=== PATIENT | male | born 1945 | race Caucasian/White ===

== ENCOUNTER 2017-01-08 11:34 | Emergency (ER) | payer MEDICARE ==
[~2017-01-08] VITALS: Ht 175.3 cm; Wt 104.0 kg
[~2017-01-08 11:34] MED LIST: ENAL20TA PO; LATA0.002 EACH EYE; LOVA20TA PO; OMEP20TA PO
[2017-01-08 11:41] VITALS: BP 164/89; PULSE 70; RESP 18; TEMP 97.9; O2SAT 96
[2017-01-08] MEDS ORDERED: TETANUS/DIPHTHERIA TOXOID ADULT 0.5 ML VIAL IM ONE (12:00)
[2017-01-08] MEDS ORDERED: MELO-1 PO (12:14)
--- NOTE | 2017-01-08 12:14 | PD ---
HPI Chief Complaint: Injury Time Seen by Provider: 11:40 Travel History International Travel<30 days: No Contact w/Intl Traveler<30days: No Traveled to known affect area: No History of Present Illness HPI 71-year-old male presents emergency department for evaluation of right shoulder pain after lifting a 25 pound bag of birdseed with one arm. He reports the pain was immediate and in the anterior and posterior aspect of the shoulder. He denies numbness/tingling this weakness of the extremity. She reports history of rotator cuff injury and right shoulder. He reports this pain is similar. He reports pain with overhead extension and full abduction. Pain is constant, nonradiating worse with movement relieved with rest. Severity 5/10. PFSH Past Medical History Blood Disorders: No Heart Rhythm Problems: No Cancer: No Cardiovascular Problems: Yes (htn on meds) High Cholesterol: Yes Chest Pain: Yes Congestive Heart Failure: No Diabetes: No Diminished Hearing: No Endocrine: Yes Gastrointestinal Disorders: Yes (PASSING BLOOD) GERD: Yes Glaucoma: No Genitourinary: No Hepatitis: No Hiatal Hernia: No Hypertension: Yes Immune Disorder: No Implanted Vascular Access Dvce: No Medical other: Yes (GERD, GI BLEED, ARTHRITIS, BROWN'S SEQUAD QUADROPELGIC) Musculoskeletal: Yes ("BROKEN NECK") Neurologic: No Psychiatric: No Reproductive: No Respiratory: Yes Immunizations Current: Yes Thyroid Disease: No Tetanus Vaccination: > 5 Years Influenza Vaccination: No Past Surgical History Abdominal Surgery: No Cardiac Surgery: No Ear Surgery: No Endocrine Surgery: No Eye Surgery: Yes (LEFT EYE SCLERAL BUCKLE, VITRECTOMY, LENS INSERTED, right eye cataract) Genitourinary Surgery: No Gynecologic Surgery: No Neurologic Surgery: Yes (BROKEN NECK -- C5/6/7 FUSION WITH WIRE) Oral Surgery: No Pacemaker: No Thoracic Surgery: No Other Surgery: Yes (VASECTOMY, right knee) Social History Alcohol Use: No Tobacco Use: No Substance Use: No Allergies-Medications (Allergen,Severity, Reaction): Coded Allergies: No Known Allergies (Verified , 01/08/17) Reported Meds & Prescriptions Reported Meds & Active Scripts Active Meloxicam 15 Mg Tab 15 Mg PO DAILY Reported Omeprazole 20 Mg Tab 20 Mg PO DAILY Lovastatin 20 Mg Tab 20 Mg PO EVERY OTHER DAY Latanoprost Opth Drops (Latanoprost) 0.005% Drops 1 Drop EACH EYE HS Refrigerate until opened. Enalapril (Enalapril Maleate) 20 Mg Tab 20 Mg PO BID Review of Systems Except as stated in HPI: all other systems reviewed are Neg General / Constitutional: No: Fever Eyes: No: Visual changes HENT: No: Headaches Cardiovascular: No: Chest Pain or Discomfort Respiratory: No: Shortness of Breath Gastrointestinal: No: Abdominal Pain Genitourinary: No: Dysuria Physical Exam Narrative GENERAL: Well-nourished, well-developed patient. SKIN: Focused skin assessment warm/dry. HEAD: Normocephalic. EYES: No scleral icterus. No injection or drainage. NECK: Supple, trachea midline. No JVD or lymphadenopathy. CARDIOVASCULAR: Regular rate and rhythm without murmurs, gallops, or rubs. RESPIRATORY: Breath sounds equal bilaterally. No accessory muscle use. GASTROINTESTINAL: Abdomen soft, non-tender, nondistended. MUSCULOSKELETAL: No cyanosis, or edema. Right upper extremity: TTP of the soft tissue in the anterior posterior aspect of the shoulder extending into the proximal portion of the biceps. No shoulder deformity or step-off. Positive Neer's test. 2+ distal pulses. Normal sensation. Equal hand grasp. BACK: Nontender without obvious deformity. No CVA tenderness. Data Data Last Documented VS Vital Signs Date Time Temp Pulse Resp B/P (MAP) Pulse Ox O2 Delivery O2 Flow Rate FiO2 01/08/17 11:58 16 96 Room Air 01/08/17 11:41 97.9 70 164/89 (114) Orders Orders Tetanus/Diphtheria Tox Adult (Tetanus/Di (01/08/17 12:00) Ketorolac Inj (Toradol Inj) (01/08/17 12:15) ^ Sling (01/08/17 12:25) MDM Medical Decision Making Medical Screen Exam Complete: Yes Emergency Medical Condition: Yes Differential Diagnosis Rotator cuff injury, biceps injury, shoulder strain Narrative Course 71-year-old male presents emergency department for evaluation of right shoulder pain after lifting a 25 pound bag of birdseed with one arm. He reports the pain was immediate and the anterior and posterior aspect of the shoulder. He denies numbness/tingling this weakness of the extremity. On exam the shoulders and good alignment. Extremities neurovascularly intact. Has a positive Neer's test. Patient has a known history of a rotator cuff tear. Patient will be instructed to wear sling given a prescription for NSAIDs and instructed to follow-up with orthopedic doctor. Diagnosis Primary Impression: Injury of right rotator cuff Qualified Codes: S46.001A - Unspecified injury of muscle(s) and tendon(s) of the rotator cuff of right shoulder, initial encounter Referrals: Orthopedist Additional Instructions: Take the medication as prescribed. Wear the sling if possible. Avoid any heavy lifting with the right upper extremity. Follow-up with orthopedic doctor this week for recheck Scripts Meloxicam (Meloxicam) 15 Mg Tab 15 MG PO DAILY for Arthritis Pain, #20 TAB 0 Refills Prov: Negar Alexis 01/08/17 Disposition: 01 DISCHARGE HOME Condition: Stable Negar Alexis Jan 08, 2017 12:14
[2017-01-08] MEDS ORDERED: KETOROLAC TROMETHAMINE 60 MG/2 ML (IM) VIAL IM ONE (12:15)
== END 2017-01-08 12:45 | disposition home or self-care (01) ==
LOC: PHEFT 11:34
DX: S46.001A Unspecified injury of muscle(s) and tendon(s) of the rotator cuff of right shoulder, initial encounter (principal); I10 Essential (primary) hypertension; E78.00 Pure hypercholesterolemia, unspecified; Z86.79 Personal history of other diseases of the circulatory system; Z87.19 Personal history of other diseases of the digestive system; Z87.39 Personal history of other diseases of the musculoskeletal system and connective tissue; Z87.09 Personal history of other diseases of the respiratory system; X50.0XXA Overexertion from strenuous movement or load, initial encounter
CPT/HCPCS: 96372; 99284; J1885

== ENCOUNTER 2017-05-20 14:09 | Observation (INO) | payer MEDICARE ==
[~2017-05-20] VITALS: Ht 175.3 cm; Wt 102.8 kg
[~2017-05-20 14:09] MED LIST changes: +MELO15TA20 PO; -OMEP20TA PO; +OMEP20TA93 PO
[2017-05-20 14:46] VITALS: BP 158/89; PULSE 80; RESP 20; TEMP 98.6; O2SAT 93
[2017-05-20] MEDS ORDERED: LATA0.002 RIGHT EYE (15:39)
[2017-05-20] MEDS ORDERED: TIMO0.5S30 RIGHT EYE (15:39)
[2017-05-20] MEDS ORDERED: SODIUM CHLOR 0.9% 1000 ML INJ 1,000 ML IV SCH (16:04)
--- NOTE | 2017-05-20 16:08 | PD ---
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 Symptoms started yesterday and seemed to worsen today. He had a fever of 100F before coming to the emergency department and was given a dose of Mucinex by his . Cough is productive of yellowish sputum. No hemoptysis. No dyspnea. No chest pain. No abdominal pain or vomiting. He has had some loose stools. He had a retinal detachment in his left eye and uses eyedrops at night for intraocular pressure. He is having some blurred vision in his left eye. Headache is frontal, described as pressure, 6 out of 10. No paresthesias or motor deficits. He was started on Cipro today by his primary care physician. PFSH Past Medical History Blood Disorders: No Heart Rhythm Problems: No Cancer: No Cardiovascular Problems: Yes (htn on meds) High Cholesterol: Yes Chest Pain: Yes Congestive Heart Failure: No Diabetes: No Diminished Hearing: No Endocrine: Yes Gastrointestinal Disorders: Yes (PASSING BLOOD) GERD: Yes Glaucoma: No Genitourinary: No Hepatitis: No Hiatal Hernia: No Hypertension: Yes Immune Disorder: No Implanted Vascular Access Dvce: No Medical other: Yes (GERD, GI BLEED, ARTHRITIS, BROWN'S SEQUAD QUADROPELGIC) Musculoskeletal: Yes ("BROKEN NECK") Neurologic: No Psychiatric: No Reproductive: No Respiratory: Yes Immunizations Current: Yes Thyroid Disease: No Past Surgical History Abdominal Surgery: No Cardiac Surgery: No Ear Surgery: No Endocrine Surgery: No Eye Surgery: Yes (LEFT EYE SCLERAL BUCKLE, VITRECTOMY, LENS INSERTED, right eye cataract) Genitourinary Surgery: No Gynecologic Surgery: No Neurologic Surgery: Yes (BROKEN NECK -- C5/6/7 FUSION WITH WIRE) Oral Surgery: No Pacemaker: No Thoracic Surgery: No Other Surgery: Yes (VASECTOMY, right knee) Social History Alcohol Use: No Tobacco Use: No Substance Use: No Allergies-Medications (Allergen,Severity, Reaction): Coded Allergies: No Known Allergies (Verified Allergy, Unknown, 05/20/17) Reported Meds & Prescriptions Reported Meds & Active Scripts Active Reported Timolol Opth Drops 0.5 % Soln 1 Drop RIGHT EYE BID Latanoprost Opth Drops (Latanoprost) 0.005% Drops 1 Drop RIGHT EYE HS Refrigerate until opened. Omeprazole 20 Mg Tab 20 Mg PO DAILY Lovastatin 20 Mg Tab 20 Mg PO EVERY OTHER DAY Latanoprost Opth Drops (Latanoprost) 0.005% Drops 1 Drop EACH EYE HS Refrigerate until opened. Enalapril (Enalapril Maleate) 20 Mg Tab 20 Mg PO BID Review of Systems Except as stated in HPI: all other systems reviewed are Neg Physical Exam Narrative GENERAL: Well-developed, well-nourished, comfortable, no apparent distress. SKIN: Focused skin assessment warm/dry. No rash. HEAD: Atraumatic. Normocephalic. EYES: Pupils equal and round. No scleral icterus. No injection or drainage. Intraocular pressure in the right eye is 19 mmHg, 23 mmHg in the left eye. These pressures are normal for the patient according to him and his . ENT: No nasal bleeding or discharge. Mucous membranes pink and moist. Normal pharynx. NECK: Trachea midline. No JVD. No nuchal rigidity. CARDIOVASCULAR: Regular rate and rhythm. RESPIRATORY: No accessory muscle use. Clear to auscultation. Breath sounds equal bilaterally. GASTROINTESTINAL: Abdomen soft, non-tender, nondistended. MUSCULOSKELETAL: No obvious deformities. No clubbing. No cyanosis. No edema. NEUROLOGICAL: Awake and alert. No obvious cranial nerve deficits. Motor grossly within normal limits. Normal speech. PSYCHIATRIC: Appropriate mood and affect; insight and judgment normal. Data Data Last Documented VS Vital Signs Date Time Temp Pulse Resp B/P (MAP) Pulse Ox O2 Delivery O2 Flow Rate FiO2 05/20/17 16:30 70 20 94 Room Air 05/20/17 14:46 98.6 158/89 (112) Orders Orders Complete Blood Count With Diff (05/20/17 16:04) Comprehensive Metabolic Panel (05/20/17 16:04) Prothrombin Time / Inr (Pt) (05/20/17 16:04) Act Partial Throm Time (Ptt) (05/20/17 16:04) Urinalysis - C+S If Indicated (05/20/17 16:04) Iv Access Insert/Monitor (05/20/17 16:04) Ecg Monitoring (05/20/17 16:04) Oximetry (05/20/17 16:04) Sodium Chlor 0.9% 1000 Ml Inj (Ns 1000 M (05/20/17 16:04) Sodium Chloride 0.9% Flush (Ns Flush) (05/20/17 16:15) Chest, Single Ap (05/20/17 ) Influenzae A/B Antigen (05/20/17 16:04) Group A Rapid Strep Screen (05/20/17 16:04) Ct Brain W/O Iv Contrast(Rout) (05/20/17 ) Proparacaine 0.5% Opth Soln (Alcaine 0.5 (05/20/17 16:45) Strep Culture (Group A) (05/20/17 16:20) Oseltamivir (Tamiflu) (05/20/17 17:00) Labs Laboratory Tests Test 05/20/17 16:20 White Blood Count 7.1 TH/MM3 Red Blood Count 4.92 MIL/MM3 Hemoglobin 14.9 GM/DL Hematocrit 44.8 % Mean Corpuscular Volume 91.1 FL Mean Corpuscular Hemoglobin 30.4 PG Mean Corpuscular Hemoglobin Concent 33.3 % Red Cell Distribution Width 13.9 % Platelet Count 150 TH/MM3 Mean Platelet Volume 8.9 FL Neutrophils (%) (Auto) 76.7 % Lymphocytes (%) (Auto) 10.0 % Monocytes (%) (Auto) 11.4 % Eosinophils (%) (Auto) 0.7 % Basophils (%) (Auto) 1.2 % Neutrophils # (Auto) 5.5 TH/MM3 Lymphocytes # (Auto) 0.7 TH/MM3 Monocytes # (Auto) 0.8 TH/MM3 Eosinophils # (Auto) 0.0 TH/MM3 Basophils # (Auto) 0.1 TH/MM3 CBC Comment DIFF FINAL Differential Comment Prothrombin Time 10.9 SEC Prothromb Time International Ratio 1.1 RATIO Activated Partial Thromboplast Time 30.2 SEC Urine Collection Type VOIDED Urine Color YELLOW Urine Turbidity CLEAR Urine pH 6.0 Urine Specific [place] 1.034 Urine Protein 30 mg/dL Urine Glucose (UA) NEG mg/dL Urine Ketones NEG mg/dL Urine Occult Blood NEG Urine Nitrite NEG Urine Bilirubin NEG Urine Leukocyte Esterase NEG Urine WBC 0-2 /hpf Urine Squamous Epithelial Cells 0-2 /hpf Urine Mucus FEW /lpf Microscopic Urinalysis Comment CULT NOT INDICATED Blood Urea Nitrogen 12 MG/DL Creatinine 0.90 MG/DL Random Glucose 104 MG/DL Total Protein 7.4 GM/DL Albumin 3.6 GM/DL Calcium Level 8.4 MG/DL Alkaline Phosphatase 71 U/L Aspartate Amino Transf (AST/SGOT) 23 U/L Alanine Aminotransferase (ALT/SGPT) 27 U/L Total Bilirubin 0.6 MG/DL Sodium Level 133 MEQ/L Potassium Level 3.9 MEQ/L Chloride Level 100 MEQ/L Carbon Dioxide Level 26.2 MEQ/L Anion Gap 7 MEQ/L Estimat Glomerular Filtration Rate 83 ML/MIN [facility] Medical Decision Making Medical Screen Exam Complete: Yes Emergency Medical Condition: Yes Differential Diagnosis Influenza, URI, pneumonia, sinusitis, intracranial abnormality, dehydration, metabolic abnormality, UTI Narrative Course Initial vital signs show heart rate 80, blood pressure 158/89, pulse ox 93% on room air, oral temp of 98.6F. CBC: WBC 7.1, hemoglobin 14.9, hematocrit 44.8, platelets 150, neutrophils 76.7% , monocytes 11.4%. CMP is essentially unremarkable. UA shows 30 protein, few mucus, not suggestive of UTI. Chest x-ray shows no acute disease. CT head shows no acute intracranial process. Influenza A+. The patient and the patient's were made aware of all findings. He is not in any respiratory distress. He has no history of pulmonary disease. His O2 saturation is between 91 and 93% on room air. Patient and the patient's prefer for him to stay in the hospital if at all possible. Given his age, influenza A positive, and hypoxia, he will be admitted for overnight observation. He was started on Tamiflu. Case discussed with [facility] hospitalist Dr. Lugo who will admit the patient to his service. Diagnosis Primary Impression: Influenza A Additional Impression: Hypoxia Admitting Information Admitting Physician Requests: Observation Remi Somers MD May 20, 2017 16:08
[2017-05-20] MEDS ORDERED: SODIUM CHLORIDE 0.9% FLUSH 10 ML FLUSH IV FLUSH PRN (16:15)
[2017-05-20 16:30] VITALS: PULSE 70; RESP 20; O2SAT 94
--- NOTE | 2017-05-20 16:32 | RADRPT ---
EXAM DATE/TIME: 05/20/2017 16:20 [facility] COMPARISON: CHEST PA & LAT, April 21, 2015, 11:36. INDICATIONS : Fever. MEDICAL HISTORY : None. SURGICAL HISTORY : None. ENCOUNTER: Initial ACUITY: 2 days PAIN SCORE: 0/10 LOCATION: Bilateral chest FINDINGS: A single view of the chest demonstrates the lungs to be symmetrically aerated without evidence of mas s, infiltrate or effusion. The cardiomediastinal contours are unremarkable. Osseous structures are intact. CONCLUSION: 1. No acute cardiopulmonary disease. Kenji Dey MD on May 20, 2017 at 16:29 Board Certified Radiologist. This report was verified electronically.
[2017-05-20 16:37] LABS: AUTOMATED NEUTROPHIL # 5.5 TH/MM3 (1.8-7.7); BASOPHIL # 0.1 TH/MM3 (0-0.2); BASOPHIL % 1.2 % (0.0-2.0); EOSINOPHIL % 0.7 % (0.0-4.0); HEMATOCRIT 44.8 % (39.0-51.0); HEMOGLOBIN 14.9 GM/DL (13.0-17.0); LYMPHOCYTE # 0.7 TH/MM3 (1.0-4.8); MEAN CELL VOLUME 91.1 FL (80.0-100.0); MEAN CORPUSCULAR HEMOGLOBIN 30.4 PG (27.0-34.0); MEAN CORPUSCULAR HGB CONC 33.3 % (32.0-36.0); MEAN PLATELET VOLUME 8.9 FL (7.0-11.0); MONO % 11.4 % (0.0-8.0); MONOCYTE # 0.8 TH/MM3 (0-0.9); NEUT % 76.7 % (16.0-70.0); PLATELET COUNT 150 TH/MM3 (150-450); RED BLOOD COUNT 4.92 MIL/MM3 (4.50-5.90); RED CELL DISTRIBUTION WIDTH 13.9 % (11.6-17.2); WHITE BLOOD COUNT 7.1 TH/MM3 (4.0-11.0)
[2017-05-20 16:39] LABS: BILIRUBIN, URINE NEG (NEG); BLOOD, URINE NEG (NEG); GLUCOSE,URINE NEG (NEG); KETONE, URINE NEG (NEG); NITRITE,URINE NEG (NEG); URINE LEUKOCYTE ESTERASE NEG (NEG)
--- NOTE | 2017-05-20 16:42 | RADRPT ---
EXAM DATE/TIME: 05/20/2017 16:24 [facility] COMPARISON: No previous studies available for comparison. INDICATIONS : Cephalgia. RADIATION DOSE: 60.15 CTDIvol (mGy) MEDICAL HISTORY : Gastroesophageal reflux disease. Hypertension. Cervical fractures. SURGICAL HISTORY : Fusion, cervical. ENCOUNTER: Initial ACUITY: 2 days PAIN SCALE: 7/10 LOCATION: cranial TECHNIQUE: Multiple contiguous axial images were obtained of the head. Using automated exposure control and adj ustment of the mA and/or kV according to patient size, radiation dose was kept as low as reasonably a chievable to obtain optimal diagnostic quality images. DICOM format image data is available electro nically for review and comparison. FINDINGS: CEREBRUM: The ventricles are normal for age. No evidence of midline shift, mass lesion, hemorrhage or acute in farction. No extra-axial fluid collections are seen. POSTERIOR FOSSA: The cerebellum and brainstem are intact. The 4th ventricle is midline. The cerebellopontine angle i s unremarkable. EXTRACRANIAL: The visualized portion of the orbits is intact. SKULL: The calvaria is intact. No evidence of skull fracture. CONCLUSION: Negative for acute process. Alen yBrd MD FACR on May 20, 2017 at 16:39 Board Certified Radiologist. This report was verified electronically.
[2017-05-20] MEDS ORDERED: PROPARACAINE HCL 0.5% OPHT SOLN 15 ML BTL LEFT EYE ONE (16:45)
[2017-05-20 16:46] LABS: CHLORIDE 100 MEQ/L (98-107); SODIUM (NA) 133 MEQ/L (136-145)
[2017-05-20 16:49] LABS: ALBUMIN 3.6 GM/DL (3.4-5.0); BICARBONATE 26.2 MEQ/L (21.0-32.0); BLOOD UREA NITROGEN 12 MG/DL (7-18); CALCIUM 8.4 MG/DL (8.5-10.1); GLUCOSE,RANDOM 104 MG/DL (74-106)
[2017-05-20 16:50] LABS: INTERNATIONAL NORMALIZED RATIO 1.1 RATIO; PROTHROMBIN TIME - PATIENT 10.9 SEC (9.8-11.6)
[2017-05-20 16:52] LABS: ALT (GPT) 27 U/L (12-78); AST (GOT) 23 U/L (15-37); GLOMERULAR FILTRATION RATE 83 ML/MIN (>89)
[2017-05-20 16:54] LABS: TOTAL BILIRUBIN ADULT 0.6 MG/DL (0.2-1.0); TOTAL PROTEIN 7.4 GM/DL (6.4-8.2)
[2017-05-20 16:55] LABS: ALKALINE PHOSPHATASE 71 U/L (45-117)
[2017-05-20] MEDS ORDERED: OSELTAMIVIR PHOSPHATE 75 MG CAP PO ONE (17:00)
[2017-05-20 17:01] LABS: MUCUS URINE FEW /lpf (OCC); URINE COLOR YELLOW (YELLW/STRAW)
[2017-05-20 17:02] LABS: SQUAMOUS EPITHELIAL CELL URINE 0-2 /hpf (0-5); WBC, URINE 0-2 /hpf (0-5)
[2017-05-20 17:52] VITALS: BP 168/96; PULSE 70; RESP 20; TEMP 98.9; O2SAT 94
[2017-05-20 18:44] VITALS: BP 165/106; PULSE 73; RESP 16; TEMP 98.8; O2SAT 95
--- NOTE | 2017-05-20 19:15 | MH ---
cc: AARON LEON DATE OF ADMISSION 05/20/2017 ADMISSION DIAGNOSIS 1. Influenza type A 2. Minimal hypoxemia without symptoms. 3. Hypertension 4. 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 Glaucoma. 7. Osteoarthritis. PERTINENT HISTORY This is a pleasant 71-year-old white male who came to the emergency room today with a one-day history of generalized malaise, cough, slight sore throat. He had no vomiting. No nausea. He had just some slight loose bowel movements earlier today. He has had low grade fever. His cough is productive of a little bit of yellowish mucus at times but primarily dry. He has no dysuria, frequency or hematuria. In the ED, he was tested for influenza type A which was positive. The ER physician felt like he should stay overnight because his O2 sat at one time was down to 91%. For that reason, he was admitted to observation overnight. He has been given Tamiflu. He will be admitted for observation and possibly discharge tomorrow. He looks fairly comfortable as I am examining him after his admission by the ED. He does not have any wheezing or shortness of breath. He denies any prior history of documented COPD or asthma, however, he did smoke about one and a half packs a day for around 42 years. PAST MEDICAL HISTORY 1. Hypertension, 2. Hyperlipidemia. 3. History of surgery for a neck fracture with cervical fusion in 1978 and what was diagnosed as a Brown ___ injury which left him with some spasticity and slight weakness of his left arm and left leg and some numbness of the right side of his body from the foot up to the right armpit for years. 4. Osteoarthritis especially in the right knee. He denies any heart attack, angina, CHF, diabetes, liver or kidney disease. No history of stroke or seizure, no cancer. He does have increased intraocular pressure in the left eye and decreased vision in that eye where he had had a retinal detachment in that eye. PAST SURGICAL HISTORY 1. Cataract extraction and lens implant of the right eye 2. Surgery for retinal detachment in the left eye. 3. Tonsillectomy 4. Cervical fusion in 1978 after fracture of his neck 5. Cardiac cath in the past that showed just some minimal coronary artery disease of the LAD with a 10-20% mid LAD lesion. 6. Prior EGD on 07/01/2008 that showed just a Vilma Thompson tear and some esophagitis. ALLERGIES None. MEDICATIONS 1. Lovastatin 20 mg one every other day. 2. Enalapril 20 mg twice a day. 3. Omeprazole 20 mg a day. 4. Timolol eye drops 0.5% 1 drop in the left daily 5. Latanoprost 0.005% 1 drop at bed time in the left eye FAMILY HISTORY A brother with Parkinson disease, Mother in her 80s of lymphoma. Father at around 60s of a heart attack. SOCIAL HISTORY He has smoked one and a half pack a day from around age 16 to age 58. He is . Does not use alcohol. REVIEW OF SYSTEMS GENERAL: Has had the weakness and this low grade fever. HEENT: With a slight sore throat, slight sinus pressure, has chronic decreased vision in the left eye. CARDIOVASCULAR: No chest pain, orthopnea, PND. PULMONARY: He has had a primarily dry cough as mentioned, no wheezing or shortness of breath. GI: No nausea or vomiting. He did have loose bowel movement earlier today. No abdominal pain. : No dysuria, frequency, urgency, hematuria. EXTREMITIES: Without swelling. NEUROLOGIC: As mentioned with spasticity and slight weakness in the left arm and left leg and numbness on the right side of his body from the armpit down to the right foot, no confusion. SKIN: Without rash. MUSCULOSKELETAL: He has arthritis in the right knee. No other pain. PHYSICAL EXAMINATION GENERAL: A pleasant white male in no distress. VITAL SIGNS: BP has been from 158-89/168-96, temperature 98.9, pulse 70, respirations 20. Pulse ox 94%. HEENT: TMs clear. Pupils equal. Nose negative. Mouth without inflammation. He has dentures. NECK: Without bruit. No JVD. HEART: Regular rate and rhythm. No murmur. LUNGS: No significant crackles or wheeze just occasional rhonchi that improve with cough. ABDOMEN: Soft, nontender, no mass. EXTREMITIES: Pulses good in both feet 2+. SKIN: Without rash. NEUROLOGIC: He has just some slight weakness of the left arm and spasticity of the left hand and slight weakness left leg, slight decreased sensation of the right lower extremity to touch. He is oriented and alert. LABORATORY DATA Sodium was 133, potassium 3.9, BUN 12, creatinine 0.9, AST, ALT alkaline phosphatase, protein, albumin were normal. Glucose 104. White count was 7.1, hemoglobin 14.9. Urinalysis was negative. Coag negative. IMAGING STUDIES Chest x-ray showed no acute process. CT brain scan was done which showed negative for acute process. ASSESSMENT/PLAN He will just be admitted to observation. We will just give him some DuoNeb treatments to help him clear his mucus, give him some cough medicine with codeine. We will put him on Tamiflu. We will maintain him on his regular medications. He will be on a regular diet with a heart healthy diet. We will give him some REBECCA hose and SCDs for DVT prophylaxis. MD KAHLIL Wilson/ /6:32 PM /6:46 PM
[2017-05-20 19:40] VITALS: TEMP 98.8
[2017-05-20] MEDS ORDERED: TIMOLOL MALEATE 0.5% OPHT SOLN 5 ML BTL LEFT EYE ONE (20:00)
[2017-05-20] MEDS ORDERED: LATANOPROST 0.005% OPHT SOLN 2.5 ML BTL EACH EYE SCH (21:00)
[2017-05-20] MEDS: OSELTAMIVIR PHOSPHATE 75 MG CAP PO SCH (21:51)
[2017-05-20] MEDS: ENALAPRIL MALEATE 10 MG TAB PO SCH (21:51)
[2017-05-20] MEDS: guaiFENesin/CODEINE SYRUP 200 MG/20 MG/10 ML CUP PO PRN (21:51)
[2017-05-20] MEDS: ACETAMINOPHEN 650 MG/20.3 ML UDC PO PRN (21:51)
[2017-05-20] MEDS: RESP: ALBUTEROL 2.5 MG/IPRATROPIUM 0.5 MG NEB (SCH) NEB (22:09)
[2017-05-20 22:21] VITALS: BP 161/81; PULSE 81; RESP 20; TEMP 99.6; O2SAT 94
[2017-05-21] VITALS: BP 142/70; PULSE 67; RESP 18; TEMP 98.9; O2SAT 95
[2017-05-21 04:00] VITALS: O2SAT 95
[2017-05-21] MEDS: RESP: ALBUTEROL 2.5 MG/IPRATROPIUM 0.5 MG NEB (SCH) NEB (04:00)
[2017-05-21] MEDS: ACETAMINOPHEN 650 MG/20.3 ML UDC PO PRN (06:50)
[2017-05-21] MEDS: guaiFENesin/CODEINE SYRUP 200 MG/20 MG/10 ML CUP PO PRN (06:50)
--- NOTE | 2017-05-21 07:36 | HHI.PR ---
Subjective Remarks I feel better.I am coughing less.No shortness of breath or wheezing. No pain. Objective Vitals Vital Signs Date Time Temp Pulse Resp B/P (MAP) Pulse Ox O2 Delivery O2 Flow Rate FiO2 05/21/17 04:00 95 05/21/17 00:00 98.9 67 18 142/70 (94) 95 05/20/17 22:21 99.6 81 20 161/81 (107) 94 05/20/17 20:34 05/20/17 19:40 98.8 05/20/17 18:44 98.8 73 16 165/106 (125) 95 Room Air 05/20/17 17:52 98.9 70 20 168/96 (120) 94 Room Air 05/20/17 16:30 70 20 94 Room Air 05/20/17 14:46 98.6 80 20 158/89 (112) 93 Result Diagram: 05/20/17 1620 05/20/17 1620 Other Results Laboratory Tests Test 05/20/17 16:20 White Blood Count 7.1 TH/MM3 Red Blood Count 4.92 MIL/MM3 Hemoglobin 14.9 GM/DL Hematocrit 44.8 % Mean Corpuscular Volume 91.1 FL Mean Corpuscular Hemoglobin 30.4 PG Mean Corpuscular Hemoglobin Concent 33.3 % Red Cell Distribution Width 13.9 % Platelet Count 150 TH/MM3 Mean Platelet Volume 8.9 FL Neutrophils (%) (Auto) 76.7 % Lymphocytes (%) (Auto) 10.0 % Monocytes (%) (Auto) 11.4 % Eosinophils (%) (Auto) 0.7 % Basophils (%) (Auto) 1.2 % Neutrophils # (Auto) 5.5 TH/MM3 Lymphocytes # (Auto) 0.7 TH/MM3 Monocytes # (Auto) 0.8 TH/MM3 Eosinophils # (Auto) 0.0 TH/MM3 Basophils # (Auto) 0.1 TH/MM3 CBC Comment DIFF FINAL Differential Comment Prothrombin Time 10.9 SEC Prothromb Time International Ratio 1.1 RATIO Activated Partial Thromboplast Time 30.2 SEC Urine Collection Type VOIDED Urine Color YELLOW Urine Turbidity CLEAR Urine pH 6.0 Urine Specific [place] 1.034 Urine Protein 30 mg/dL Urine Glucose (UA) NEG mg/dL Urine Ketones NEG mg/dL Urine Occult Blood NEG Urine Nitrite NEG Urine Bilirubin NEG Urine Leukocyte Esterase NEG Urine WBC 0-2 /hpf Urine Squamous Epithelial Cells 0-2 /hpf Urine Mucus FEW /lpf Microscopic Urinalysis Comment CULT NOT INDICATED Blood Urea Nitrogen 12 MG/DL Creatinine 0.90 MG/DL Random Glucose 104 MG/DL Total Protein 7.4 GM/DL Albumin 3.6 GM/DL Calcium Level 8.4 MG/DL Alkaline Phosphatase 71 U/L Aspartate Amino Transf (AST/SGOT) 23 U/L Alanine Aminotransferase (ALT/SGPT) 27 U/L Total Bilirubin 0.6 MG/DL Sodium Level 133 MEQ/L Potassium Level 3.9 MEQ/L Chloride Level 100 MEQ/L Carbon Dioxide Level 26.2 MEQ/L Anion Gap 7 MEQ/L Estimat Glomerular Filtration Rate 83 ML/MIN Imaging Last Impressions Head CT 05/20/17 0000 Signed Impressions: Service Date/Time: Saturday, May 20, 2017 16:24 - CONCLUSION: Negative for acute process. Alen Byrd MD FACR Chest X-Ray 05/20/17 0000 Signed Impressions: Service Date/Time: Saturday, May 20, 2017 16:20 - CONCLUSION: 1. No acute cardiopulmonary disease. Kenji Dey MD Objective Remarks Exam: Alert white male in no distress. HEENT: Pupils equal, mouth negative Neck: No JVD Heart: RRR Lungs: Clear. 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 Tamiflu 75mg twice a day for 4 more days. Resume home medications. I ordered some codeine cough syrup for him. Followup with Barron Dior MD May 21, 2017 07:36
[2017-05-21] MEDS ORDERED: guaiFEN-COD 200-20 MG/10ML LIQ PO (07:40)
[2017-05-21] MEDS ORDERED: OSEL75 PO (07:40)
[2017-05-21 07:50] VITALS: BP 138/74; PULSE 74; RESP 20; TEMP 98.4; O2SAT 96
[2017-05-21] MEDS: ENALAPRIL MALEATE 10 MG TAB PO SCH (08:16)
[2017-05-21] MEDS: OSELTAMIVIR PHOSPHATE 75 MG CAP PO SCH (08:18)
[2017-05-21] MEDS ORDERED: PANTOPRAZOLE SOD 20 MG DELAYED RELEASE TAB PO SCH (09:00)
[2017-05-22] MEDS ORDERED: PRAVASTATIN SOD 20 MG TAB PO SCH (09:00)
== END 2017-05-21 10:10 | disposition home or self-care (01) ==
LOC: PHED 14:09 → PHEDA 17:19 → PH3A 20:24
PROVIDERS: ADMIT Family Medicine; ATTEND Family Medicine
DX: J10.1 Influenza due to other identified influenza virus with other respiratory manifestations (principal); R09.02 Hypoxemia; I10 Essential (primary) hypertension; E78.5 Hyperlipidemia, unspecified; Z87.891 Personal history of nicotine dependence; R07.9 Chest pain, unspecified; K21.9 Gastro-esophageal reflux disease without esophagitis; Z79.899 Other long term (current) drug therapy
CPT/HCPCS: 70450; 71045; 80053; 81001; 85025; 85610; 85730; 87081; 87804; 87880; 94640; 94664; 99285; G0378; J7030

== ENCOUNTER → 2017-06-14 | Outpatient (CLI) | payer MEDICARE ==
[~2017-06-14] MED LIST changes: +ADJUSTABLE COMM1 MIS; +APIX2.5T PO; +CLOB0.055 TOPICAL; +CPMMACHINE; +DESO0.0560 TOPICAL; +FLUT1LOT TOPICAL; -LATA0.002 EACH EYE; +LATA0.002 LEFT EYE; +MAPA650T PO; -MELO15TA20 PO; +OSEL75 PO; +TIMO0.5S30 LEFT EYE; +WALKER WHEELS/F1 MIS; +guaiFEN-COD 200-20 MG/10ML LIQ PO
[2017-06-14 09:58] LABS: HEMATOCRIT 44.6 % (39.0-51.0); HEMOGLOBIN 15.5 GM/DL (13.0-17.0); MEAN CELL VOLUME 91.7 FL (80.0-100.0); MEAN CORPUSCULAR HEMOGLOBIN 31.7 PG (27.0-34.0); MEAN CORPUSCULAR HGB CONC 34.6 % (32.0-36.0); MEAN PLATELET VOLUME 8.8 FL (7.0-11.0); PLATELET COUNT 187 TH/MM3 (150-450); RED BLOOD COUNT 4.87 MIL/MM3 (4.50-5.90); RED CELL DISTRIBUTION WIDTH 14.6 % (11.6-17.2); WHITE BLOOD COUNT 6.6 TH/MM3 (4.0-11.0)
[2017-06-14 10:01] LABS: BILIRUBIN, URINE NEG (NEG); BLOOD, URINE NEG (NEG); GLUCOSE,URINE NEG (NEG); KETONE, URINE NEG (NEG); MUCUS URINE FEW /lpf (OCC); NITRITE,URINE NEG (NEG); SQUAMOUS EPITHELIAL CELL URINE 1 /hpf (0-5); URINE COLOR YELLOW (YELLW/STRAW); URINE LEUKOCYTE ESTERASE NEG (NEG)
[2017-06-14 10:13] LABS: PROTHROMBIN TIME - PATIENT 10.5 SEC (9.8-11.6)
[2017-06-14 10:28] LABS: ALBUMIN 3.8 GM/DL (3.4-5.0); ALT (GPT) 24 U/L (12-78); AST (GOT) 17 U/L (15-37); BICARBONATE 26.5 MEQ/L (21.0-32.0); BLOOD UREA NITROGEN 15 MG/DL (7-18); CALCIUM 9.1 MG/DL (8.5-10.1); CHLORIDE 104 MEQ/L (98-107); CREATININE 0.98 MG/DL (0.60-1.30); GLOMERULAR FILTRATION RATE 75 ML/MIN (>89); GLUCOSE,FASTING 100 MG/DL (74-99); SODIUM (NA) 139 MEQ/L (136-145)
[2017-06-14 10:29] LABS: ALKALINE PHOSPHATASE 76 U/L (45-117); TOTAL BILIRUBIN ADULT 0.4 MG/DL (0.2-1.0); TOTAL PROTEIN 7.4 GM/DL (6.4-8.2)
--- NOTE | 2017-06-14 10:34 | RADRPT ---
EXAM DATE/TIME: 06/14/2017 09:33 [facility] COMPARISON: CHEST PA & LAT, April 21, 2015, 11:36. INDICATIONS : Evalaute for pmeumonia, pneumothorax, and communicable diseases. Pre-op right knee surgery. MEDICAL HISTORY : Gastroesophageal reflux disease. Hypertension. Cervical fractures SURGICAL HISTORY : Cervical fusion. ENCOUNTER: Initial ACUITY: 1 day PAIN SCORE: 0/10 LOCATION: Bilateral chest FINDINGS: The cardiac silhouette is enlarged in transverse diameter. The lungs are free of acute parenchymal op acity. No effusions are identified. CONCLUSION: 1. Cardiomegaly. No acute pulmonary disease. Richard Fabian MD on June 14, 2017 at 10:30 Board Certified Radiologist. This report was verified electronically.
--- NOTE | 2017-06-14 16:08 | EKG ---
Date Performed: 06/14/2017 Time Performed: 08:44:40 PTAGE: 71 years EKG: Sinus rhythm INFERIOR MYOCARDIAL INFARCTION, PROBABLY OLD ABNORMAL ECG Since the prior tracing, there has been no significant change PREVIOUS TRACING : 07/11/2013 15.27 DOCTOR: Ya Tucker Interpretating Date/Time 06/14/2017 16:06:19
== END ==
LOC: CPRE 08:18
PROVIDERS: ATTEND Surgery
DX: Z01.812 Encounter for preprocedural laboratory examination (principal); Z01.811 Encounter for preprocedural respiratory examination; Z01.810 Encounter for preprocedural cardiovascular examination; M79.609 Pain in unspecified limb
CPT/HCPCS: 36415; 71046; 80053; 81001; 85027; 85610; 85730; 93005

== ENCOUNTER 2017-06-21 05:26 | Inpatient (IN) | payer MEDICARE ==
--- NOTE | 2017-06-16 16:58 | MH ---
cc: [place] RUDOLPH M.D. DATE OF ADMISSION: 06/21/2017 ADMISSION DIAGNOSIS 1. Osteoarthritic degeneration right knee 2. [place] accord syndrome. ADMISSION HISTORY AND PHYSICAL This pleasant 71-year-old male with known history of Brown's S quard syndrome and is being admitted today for right total knee arthroplasty, other past history other then the [place] acquired syndrome. He has a history of hypertension and back pain. MEDICATIONS Current medications include 1. Diphenhydramine 2. Betamethasone 3. Betamide 4. Enalapril 5. Lovastatin. 6. Omeprazole. 7. Tramadol 8. Drysol 9. Cipro 10. Diflucan 11. Flonase 12. Antivert 13. Niacin PAST SURGERIES Neck fusion the REVIEW OF SYSTEMS Noncontributory. FAMILY HISTORY Noncontributory. SOCIAL HISTORY: Does not smoke or drink ALLERGIES NO KNOWN DRUG ALLERGIES. PHYSICAL EXAMINATION IN GENERAL: We find a 71-year-old male with some weakness in left lower extremity and decreased sensation in the right lower extremity some scoliosis as well. VITAL SIGNS: Blood pressure 126/72, pulse 72 and regular, respirations 16, temperature 97.9, pulse oximetry 96% on room air. HEAD, EYES, EARS, NOSE, AND THROAT: Eyes Pupils equal, round, reactive to light and accommodation, extraocular muscles intact, Ears, nose, mouth clear. NECK: Supple. LUNGS: Clear. HEART: Regular rate. ABDOMEN: Soft. Positive bowel sounds, nontender. EXTREMITIES: The extremities revealed scoliosis of the lumbar spine and decreased range of motion right knee from osteoarthritic degeneration decreased sensation of the right leg and weakness in his left leg with hyperextension. IMPRESSION At this time is severe osteoarthritic degeneration right knee along with Brown S quard syndrome. PLAN: Admission for right total knee arthroplasty today. The patient does plan on going [facility] after surgical stay in the hospital and will need a long leg brace locked to protect him from going to hyperextension on the left leg while he goes though his physical therapy. J. MD ASYA Flores/rubin /2:16 PM /4:34 PM
[~2017-06-21] VITALS: Ht 177.8 cm; Wt 103.2 kg
[~2017-06-21 05:26] MED LIST changes: -ADJUSTABLE COMM1 MIS; -APIX2.5T PO; -CPMMACHINE; -OSEL75 PO; -TIMO0.5S30 LEFT EYE; -WALKER WHEELS/F1 MIS; -guaiFEN-COD 200-20 MG/10ML LIQ PO
[2017-06-21] MEDS ORDERED: VANCOMYCIN 1 GM/200 ML INJ 200 ML IV ONE (06:00)
[2017-06-21] MEDS ORDERED: ceFAZolin 2 GM PREMIX 50 ML IV SCH (06:00)
[2017-06-21] MEDS ORDERED: SODIUM CHLORIDE 0.9% IV SCH ×2 (06:00→09:00)
[2017-06-21] MEDS ORDERED: CHLORHEXIDINE GLUCONATE 4% SOLN 120 ML BTL TOPICAL SCH (06:00)
[2017-06-21] MEDS ORDERED: CHLORHEXIDINE GLUCONATE 2 % 1 PACK (2 CLOTHS) TOPICAL PRN (06:00)
[2017-06-21] MEDS ORDERED: TRANEXAMIC ACID IV SCH ×2 (06:00→09:00)
[2017-06-21] MEDS ORDERED: LACTATED RINGER'S 1000 ML IV PRN (06:00)
[2017-06-21] MEDS ORDERED: DEXAMETHASONE SOD PHOS 20 MG/5 ML VIAL IV SCH (06:00)
[2017-06-21] MEDS ORDERED: EXPAREL PERI-ARTICULAR INJECTION (TOTAL VOL. 120 ML) P-ARTICULR SCH ×2 (06:00)
[2017-06-21] MEDS ORDERED: VANCOMYCIN 1000 MG/NS 250 ML (for <70 kg) IV SCH ×2 (06:00)
[2017-06-21] MEDS ORDERED: SODIUM CHLORID 0.9% 500 ML IV PRN (06:00)
[2017-06-21] MEDS ORDERED: METOPROLOL TARTRATE 25 MG TAB PO PRN (06:00)
[2017-06-21] MEDS ORDERED: POVIDONE IODINE 5% (ANTISEPSIS KIT) 4 APPLICATIONS EACH NARE PRN (06:00)
[2017-06-21 06:37] VITALS: PULSE 78
[2017-06-21] MEDS ORDERED: ceFAZolin INJ 1,000 MG VIAL ONE (06:51)
[2017-06-21] MEDS ORDERED: MIDAZOLAM HCL 2 MG/2 ML VIAL ONE (07:05)
[2017-06-21] MEDS ORDERED: BUPIVACAINE LIPOSOME PF 1.3% 20 ML VIAL ONE (07:06)
[2017-06-21] MEDS ORDERED: FAMOTIDINE 20 MG/2 ML VIAL ONE (07:33)
[2017-06-21] MEDS ORDERED: ACETAMINOPHEN 1000 MG/100 ML 100 ML IV ONE (07:33)
--- NOTE | 2017-06-21 08:21 | HHI.FF ---
Face to Face Verification Diagnosis: (1) Status post total right knee replacement Physical Therapy Gait training Knee: Total knee, Protocol: Right, Gait training, Full weight bearing Canvas Knee Splint: When in bed & 2 pillows btw thighs Additional Instructions Needs brace on left knee for stabilization during ambulation. Nursing RN: 3 days/week x 2 weeks Nursing: Dressing changes Dressing Changes: Daily dressing change, 4x4s, Gauze, Paper tape I have seen patient Danielito Hernandez on 06/21/17. My clinical findings support the need for the requested home health care services because: Limited ability to care for self High risk of falls I certify that my clinical findings support that this patient is homebound because: Unsteady gait/balance [place] Heredia MD Jun 21, 2017 08:21
[2017-06-21] MEDS ORDERED: CPMMACHINE (08:24)
[2017-06-21] MEDS ORDERED: ADJUSTABLE COMM1 MIS (08:24)
[2017-06-21] MEDS ORDERED: WALKER WHEELS/F1 MIS (08:25)
[2017-06-21] MEDS ORDERED: TEMAZEPAM 15 MG CAP PO PRN (08:30)
[2017-06-21] MEDS ORDERED: MORPHINE SULFATE 4 MG/ML INJ IV PUSH PRN (08:30)
[2017-06-21] MEDS ORDERED: NALOXONE HCL 0.4 MG/ML AMP IV PUSH PRN (08:30)
[2017-06-21] MEDS ORDERED: ACETAMINOPHEN 650 MG PO PRN (08:30)
[2017-06-21] MEDS ORDERED: ONDANSETRON HCL 4 MG/2 ML VIAL IVP PRN (08:30)
[2017-06-21] MEDS ORDERED: ACETAMINOPHEN/HYDROcodone 325 MG/7.5 MG TAB PO PRN ×2 (08:30)
[2017-06-21] MEDS ORDERED: TRANEXAMIC ACID INJ 0 MG in SODIUM CHLORIDE 0.9% INJ 100 ML IV SCH (08:30)
[2017-06-21] MEDS ORDERED: diphenhydrAMINE HCL 50 MG/ML VIAL IV PUSH PRN (08:30)
[2017-06-21] MEDS ORDERED: DESONIDE TOPICAL SCH (09:00)
[2017-06-21] MEDS: LATANOPROST 0.005% OPHT SOLN 2.5 ML BTL LEFT EYE SCH ×2 (09:00→20:50)
[2017-06-21] MEDS ORDERED: CLOBETASOL TOPICAL SCH (09:00)
--- NOTE | 2017-06-21 10:20 | PD.CONS ---
HPI Service [facility] Consult Requested By Dr. Heredia Reason for Consult Postoperative medical management Primary Care Physician Gian Santa MD Diagnoses: History of Present Illness This a 71-year-old male patient with past medical history which includes hypertension, hyperlipidemia, History of surgery for a neck fracture with cervical fusion in 1978 and was diagnosed as a Brown-Sequard injury which left him with some spasticity and slight weakness of his left arm and left leg and some numbness of the right side of his body from the foot up to the right armpit for years, increased intraocular pressure in the left eye and decreased vision in that eye where he had had a retinal detachment in that eye and Osteoarthritis especially in the right knee. Patient is status post right total knee arthroplasty today 06/21/[address] Gerardo. We have been consulted for assistance with postoperative medical management. Patient offers no specific complaints at this time slightly groggy, post anesthesia therefore information gathered from patient as well as prior computerized charting. Patient denies chest pain shortness of breath nausea vomiting. Review of Systems Constitutional: COMPLAINS OF: Fatigue Musculoskeletal: COMPLAINS OF: Joint pain, Stiffness Past Family Social History Past Medical History - Hypertension, - Hyperlipidemia. - History of surgery for a neck fracture with cervical fusion in 1978 and what was diagnosed as a Brown-Sequard injury which left him with some spasticity and slight weakness of his left arm and left leg and some numbness of the right side of his body from the foot up to the right armpit for years. - Osteoarthritis especially in the right knee. - increased intraocular pressure in the left eye and decreased vision in that eye where he had had a retinal detachment in that eye. Past Surgical History 1. Cataract extraction and lens implant of the right eye 2. Surgery for retinal detachment in the left eye. 3. Tonsillectomy 4. Cervical fusion in 1978 after fracture of his neck 5. Cardiac cath in the past that showed just some minimal coronary artery disease of the LAD with a 10-20% mid LAD lesion. 6. Prior EGD on 07/01/2008 that showed Vilma Thompson tear and some esophagitis. Reported Medications Mapap Arthritis Pain ER 8 HR (Acetaminophen) 650 Mg Tab 650 Mg PO Q8HR PRN Fluticasone Topical (Fluticasone Propionate) 0.05 % Lot 1 Applic TOPICAL DAILY Clobetasol Topical (Clobetasol Propionate) 0.05% Cream 1 Applic TOPICAL BID Desonide Topical (Desonide) 0.05% Cream 1 Applic TOPICAL BID Latanoprost Opth Drops (Latanoprost) 0.005% Drops 1 Drop LEFT EYE BID Refrigerate until opened. Omeprazole 20 Mg Tab 20 Mg PO DAILY Lovastatin 20 Mg Tab 20 Mg PO EVERY OTHER DAY Enalapril (Enalapril Maleate) 20 Mg Tab 20 Mg PO BID Allergies: Coded Allergies: No Known Allergies (Verified Allergy, Unknown, 06/21/17) Family History A brother with Parkinson disease, Mother in her 80s of lymphoma. Father at around 60s of a heart attack. Social History He is . Does not use alcohol. History of tobacco use. He has smoked one and a half pack a day from around age 16 to age 58. Physical Exam Vital Signs Vital Signs Date Time Temp Pulse Resp B/P (MAP) Pulse Ox O2 Delivery O2 Flow Rate FiO2 06/21/17 06:37 78 06/21/17 06:18 98.2 83 18 184/107 (132) 97 Physical Exam GENERAL: This is a well-nourished, well-developed patient, in no apparent distress. SKIN: No rashes, ecchymoses or lesions. Cool and dry. HEAD: Atraumatic. Normocephalic. No temporal or scalp tenderness. EYES: Pupils equal round and reactive. Extraocular motions intact. No scleral icterus. No injection or drainage. ENT: Nose without bleeding, purulent drainage or septal hematoma. Throat without erythema, tonsillar hypertrophy or exudate. Uvula midline. Airway patent. NECK: Trachea midline. No JVD or lymphadenopathy. Supple, nontender, no meningeal signs. CARDIOVASCULAR: Regular rate and rhythm without murmurs, gallops, or rubs. RESPIRATORY: Clear to auscultation. Breath sounds equal bilaterally. No wheezes , rales, or rhonchi. GASTROINTESTINAL: Abdomen soft, non-tender, nondistended. No hepato-splenomegaly , or palpable masses. No guarding. MUSCULOSKELETAL: Extremities without clubbing, cyanosis, or edema. No joint tenderness, effusion, or edema noted. No calf tenderness. Negative Homans sign bilaterally. NEUROLOGICAL: Awake and alert. Cranial nerves II through XII intact. Motor and sensory grossly within normal limits. Five out of 5 muscle strength in all muscle groups. Normal speech. Assessment and Plan Problem List: (1) Arthritis of knee, right ICD Codes: M17.11 - Unilateral primary osteoarthritis, right knee Status: Acute Plan: S/P right total knee arthroplasty 06/21/[address] Yan Mercado for DVT prophylaxis per surgery [place] as needed for pain (2) HTN (hypertension) ICD Codes: I10 - Essential (primary) hypertension Plan: Continue patient's home enalapril 20 mg twice a day Monitor blood pressure trend (3) Hyperlipidemia ICD Codes: E78.5 - Hyperlipidemia, unspecified Status: Chronic Plan: Continue patient's home pravastatin Assessment and Plan Patient examined. Assessment and plan formulated with Perla Salmon PA-C. I agree with the above. Perla Salmon Jun 21, 2017 10:20 Richy Byers DO Jun 27, 2017 00:23
[2017-06-21] MEDS ORDERED: Post-op Orders (for Pharmacy) XX ONE (10:45)
[2017-06-21] MEDS ORDERED: DO NOT ADM ANY ANTICOAGULANT DRUGS PRN (10:45)
[2017-06-21] MEDS ORDERED: *morphine SULFATE 4 MG/ML PERIprocedure ONLY ONE ×2 (11:02→11:26)
--- NOTE | 2017-06-21 11:12 | RADRPT ---
EXAM DATE/TIME: 06/21/2017 10:55 [facility] COMPARISON: No previous studies available for comparison. INDICATIONS : Post op right knee surgery MEDICAL HISTORY : None. SURGICAL HISTORY : None. ENCOUNTER: Initial ACUITY: 1 day PAIN SCORE: 6/10 LOCATION: Right knee FINDINGS: Postsurgical features of right knee arthroplasty. Arthroplasty components are in anatomic alignment. No significant acute bony fracture. Immediate postsurgical soft tissue features. CONCLUSION: 1. Status post right knee arthroplasty in anatomic alignment without significant acute bony fracture. Kenji Dey MD on June 21, 2017 at 11:09 Board Certified Radiologist. This report was verified electronically.
[2017-06-21] MEDS: LACTATED RINGER'S 1000 ML INJ 1,000 ML IV SCH ×2 (11:15→20:46)
[2017-06-21] MEDS ORDERED: LACTATED RINGER'S 1000 ML INJ 1,000 ML IV ONE (12:00)
[2017-06-21] MEDS ORDERED: ONDANSETRON HCL 4 MG/2 ML VIAL IV ONE (12:00)
[2017-06-21] MEDS ORDERED: NEOSTIGMINE 5 MG/5 ML SYRINGE IV PUSH ONE (12:00)
[2017-06-21] MEDS ORDERED: LIDOCAINE HCL 1% PF 5 ML SYRINGE OTHER ONE (12:00)
[2017-06-21] MEDS ORDERED: PHENYLEPH/NS 1000 MCG/10 ML SYR IV ONE (12:00)
[2017-06-21] MEDS ORDERED: PROPOFOL 200 MG/20 ML AMP IV ONE (12:00)
[2017-06-21] MEDS ORDERED: ePHEDrine/NS 25 MG/5 ML SYRINGE IV ONE (12:00)
[2017-06-21] MEDS ORDERED: GLYCOPYRROLATE 1 MG/5 ML SYRINGE IV PUSH ONE (12:00)
[2017-06-21] MEDS ORDERED: ROCURONIUM INJ 50 MG/5 ML SYRINGE IV PUSH ONE (12:00)
[2017-06-21] MEDS ORDERED: PILL SPLITTER OTHER PRN (12:45)
[2017-06-21 16:00] VITALS: BP 143/97; PULSE 85; RESP 20; TEMP 96.2; O2SAT 96
[2017-06-21] MEDS ORDERED: ACETAMINOPHEN 325 MG TAB PO ONE (17:15)
[2017-06-21] MEDS: TRIAMCINOLONE ACETONIDE 0.1% CREAM 15 GM TOPICAL SCH (19:30)
--- NOTE | 2017-06-21 19:31 | MP ---
cc: [place] HEREDIA M.D. DATE OF SURGERY: 06/21/2017 PREOPERATIVE DIAGNOSIS: Osteoarthritic degeneration right knee. POSTOPERATIVE DIAGNOSIS: Osteoarthritic degeneration right knee. SURGERY PERFORMED Right total knee arthroplasty using Consensus components size 5 femur, 4 tibia, 14 standard insert, and size 3 patella, two batches DePuy cement. SURGEON Dr. Heredia CUPBOARD BUILDER: mark Chapman. ANESTHESIA General intubation. PROCEDURE: After successful induction of anesthesia, the patient is placed on the operating room table in the supine position. The knee is prepped and draped in the usual manner. A tourniquet is inflated at the upper thigh and set to 300 mmHg pressure after exsanguination of the lower extremity. A longitudinal incision is made extending from 3 inches proximal to the superior pole of the patella, across the patella in longitudinal fashion, and down past the insertion of the tibial tubercle into the proximal tibia. The incision is carried down through subcutaneous tissue along the medial aspect of the patella and retinaculum, down through the capsule to expose the knee joint. The patella and patellar tendon are freed up enough to allow the patella to be inverted and retracted off the lateral side of the knee joint. The knee joint is exposed. Small osteophytes are removed. All soft tissue is removed to allow proper position of the femoral and tibial cutting jig guide. The first femoral jig is then inserted along the distal end of the femur after first measuring to decide whether this is a small, medium, or large component. The notch is then drilled and the tibial cutting guide inserted into the femoral cutting guide, along with the ankle brace to allow for proper measurement of the tibial cutting surface that needed to be resected. Pins are inserted into the tibial cutting jig and femoral cutting jig to hold them in place. An oscillating saw is then used to resect the surface of the tibia. The surface of the tibia is then completely removed using sharp and blunt dissection. The anterior and posterior cuts of the femur are then made as well using an oscillating saw through the cutting guide. All guides are then removed and the varus/valgus angulation cutting guide applied to the femur for proper measurement of the proper amount of valgus. The anterior cutting guide for the femur is then inserted at the anterior femoral cuts made. Next, the first block trial is inserted into the femur to allow for proper condyle drill holes to be made which are then made followed by removal of the bone between the condyles using an oscillating saw as well as the bone removed at the most posterior surface of the condyle. After this, the guide is removed and the chamfer cuts made using the chamfer cutting guide from both anterior and posterior. Next, the femoral trial is then inserted, the tibial surface reflected anterior to expose the tibial surface and a tibial stem guide is inserted after first measuring for a standard, standard plus, large, or large plus surface to be used. After the stem is impacted the trial tibial surface is applied followed by the trial meniscal components. After full range of motion is found with the appropriate length meniscal components varying the patella is prepared by resecting the posterior aspect of the patella using an oscillating saw, inserting a trial. The trial is then removed and the cruciate cutting guide applied using the bur to cut the cruciate cuts. After cruciate cuts are made all trials are removed. The wound is irrigated copiously with antibiotic solution and Water Pik and the actual components inserted into place using: Consensus components size 5 femur, 4 tibia, 14 standard insert, and size 3 patella, two batches DePuy cement. After the cement has hardened and the components are found to have full range of motion with no instability, the tourniquet is deflated, total tourniquet time being 58 minutes at 300 mmHg pressure, 120 cc Exparel used around the knee joint for extra pain control. Meticulous hemostasis achieved. Lateral retinacular was performed to allow the patella to tract more medially, and partially repaired using interrupted #1 Vicryl suture. The deep fascia approximated with running #2 Quill, subcutaneous tissue approximated using interrupted running 2-0 and 4-0 Monocryl suture, Steri-Strips, sterile dressing and knee immobilizer. Estimated blood loss: 100 cc. No drain utilized. Sponge and suture count correct. The patient tolerated the procedure well and left the operating room in satisfactory condition. JMD ASYA Eldridge/CB /10:33 AM /7:14 PM
[2017-06-21 19:55] VITALS: BP 160/91; PULSE 93; RESP 15; TEMP 96.7; O2SAT 97
[2017-06-21] MEDS: ENALAPRIL MALEATE 10 MG TAB PO SCH (20:51)
[2017-06-21] MEDS: BETAMETHASONE DIPROPIONATE 0.05% CREAM 15 GM TOPICAL SCH (20:52)
[2017-06-22] VITALS: BP 127/72; PULSE 86; RESP 15; TEMP 97.6; O2SAT 94
[2017-06-22] MEDS: ACETAMINOPHEN 325 MG TAB PO PRN ×3 (02:20→13:12)
[2017-06-22 04:00] VITALS: BP 126/70; PULSE 84; RESP 15; TEMP 97.5; O2SAT 95
[2017-06-22 08:00] VITALS: BP 152/76; PULSE 96; RESP 18; TEMP 97.1; O2SAT 95
[2017-06-22 08:18] LABS: HEMATOCRIT 38.6 % (39.0-51.0); HEMOGLOBIN 13.2 GM/DL (13.0-17.0)
--- NOTE | 2017-06-22 08:19 | PD.ORT.PN ---
Subjective Subjective Remarks Patient comfortable except he feels that he can't sleep always on his back. Objective Vitals Vital Signs Date Time Temp Pulse Resp B/P (MAP) Pulse Ox O2 Delivery O2 Flow Rate FiO2 06/22/17 04:00 97.5 84 15 126/70 (88) 95 06/22/17 00:00 97.6 86 15 127/72 (90) 94 06/21/17 19:55 96.7 93 15 160/91 (114) 97 06/21/17 19:18 Nasal Cannula 2.00 06/21/17 16:00 96.2 85 20 143/97 (112) 96 06/21/17 15:00 98.0 73 18 156/91 (112) 98 Nasal Cannula 2 06/21/17 14:05 76 18 139/77 (97) 98 Nasal Cannula 2 06/21/17 13:00 79 18 155/90 (111) 98 Nasal Cannula 2 06/21/17 12:30 75 18 141/85 (103) 98 Nasal Cannula 2 06/21/17 12:15 80 18 152/90 (110) 98 Nasal Cannula 2 06/21/17 12:00 84 18 165/97 (119) 98 Nasal Cannula 2 06/21/17 11:45 78 18 151/91 (111) 98 Nasal Cannula 3 06/21/17 11:30 84 18 158/95 (116) 98 Nasal Cannula 3 06/21/17 11:15 82 16 142/87 (105) 98 Nasal Cannula 3 06/21/17 11:00 87 16 150/91 (110) 96 Nasal Cannula 3 06/21/17 10:48 98.2 91 16 143/86 (105) 96 Nasal Cannula 3 I/O 06/21/17 06/21/17 06/21/17 06/22/17 06/22/17 06/22/17 07:00 15:00 23:00 07:00 15:00 23:00 Intake Total 1810 ml Output Total 3100 ml 1350 ml 200 ml Balance -1290 ml -1350 ml -200 ml Intake IV Total 1810 ml Output Urine Total 1350 ml 200 ml Estimated Blood Loss 100 ml Other 3000 ml # Voids 4 Imaging Last 48 hours Impressions Knee X-Ray 06/21/17 0816 Signed Impressions: Service Date/Time: Wednesday, June 21, 2017 10:55 - CONCLUSION: 1. Status post right knee arthroplasty in anatomic alignment without significant acute bony fracture. Kenji Dey MD Objective Remarks Patient lying in bed. Dressing dry and intact without any calf tenderness. Assessment & Plan Ortho Post Op Day #: 1 Problem List: Assessment and Plan Patient is doing well first day postop. Plan is to have him transferred to [facility] for continuation of care when bed is available. [place] Heredia MD Jun 22, 2017 08:19
--- NOTE | 2017-06-22 08:21 | HHI.DS ---
Discharge Summary Admission Date Jun 21, 2017 at 05:26 Discharge Date: Jun 22, 2017 Admitting Diagnosis Osteoarthritic degeneration right knee. Diagnosis: (1) Status post total right knee replacement Diagnosis: Principal ICD Codes: Z96.651 - Presence of right artificial knee joint (2) Brown-Sequard syndrome Diagnosis: Secondary ICD Codes: G83.81 - Brown-Sequard syndrome Status: Acute Brief History This is a 71 year old male patient Significant Findings Laboratory Tests Test 06/22/17 07:10 Hematocrit 38.6 % (39.0-51.0) PE at Discharge Patient lying in bed. Dressing dry and intact without any calf tenderness. Hospital Course This patient underwent a right total knee arthroplasty on day of admission. He received a course of prophylactic IV antibiotics and within 23 hours started on anticoagulation therapy. He remained afebrile vital signs stable and will be discharged to [facility] assumes bed is available for continuation of care. He is in good condition. Pt Condition on Discharge: Good Discharge Disposition: Rehab Inpatient Discharge Instructions Diet Instructions: As Tolerated, No Restrictions Activities You Can Perform: Weight Bearing as Nandini, Shower Only-No Bath Activities to Avoid: Bathing, Driving [place] Heredia MD Jun 22, 2017 08:21
[2017-06-22] MEDS: BETAMETHASONE DIPROPIONATE 0.05% CREAM 15 GM TOPICAL SCH (09:00)
[2017-06-22] MEDS: TRIAMCINOLONE ACETONIDE 0.1% CREAM 15 GM TOPICAL SCH (09:00)
[2017-06-22] MEDS ORDERED: PANTOPRAZOLE SOD 20 MG DELAYED RELEASE TAB PO SCH (09:00)
[2017-06-22] MEDS ORDERED: FLUOCINOLONE ACETONIDE 0.01% CR 15 GM TUBE TOPICAL SCH (09:00)
[2017-06-22] MEDS ORDERED: PRAVASTATIN SOD 20 MG TAB PO SCH (09:00)
[2017-06-22] MEDS: ENALAPRIL MALEATE 10 MG TAB PO SCH (09:03)
[2017-06-22] MEDS: LATANOPROST 0.005% OPHT SOLN 2.5 ML BTL LEFT EYE SCH (09:06)
[2017-06-22] MEDS: LACTATED RINGER'S 1000 ML INJ 1,000 ML IV SCH (09:16)
[2017-06-22] MEDS ORDERED: APIXABAN 2.5 MG TABLET PO SCH (10:00)
[2017-06-22] MEDS ORDERED: TIMO0.5S30 LEFT EYE (10:53)
[2017-06-22 12:00] VITALS: BP 115/78; PULSE 100; RESP 18; TEMP 96.4; O2SAT 96
[2017-06-22] MEDS ORDERED: TIMOLOL MALEATE 0.5% OPHT SOLN 5 ML BTL LEFT EYE SCH (13:00)
[2017-06-22] MEDS ORDERED: APIX2.5T PO (13:52)
[2017-06-22] MEDS ORDERED: MULTIVITAMINS/MINERALS THERAPEUTIC TAB PO SCH (21:00)
[2017-06-22] MEDS ORDERED: DOCUSATE SODIUM 100 MG CAP PO SCH (21:00)
[2017-06-23] MEDS ORDERED: BACITRACIN OINT 0.9 GM PKT TOP PRN (10:15)
== END 2017-06-22 15:39 | DRG 470 ==
LOC: HSDI 05:26 → N06A 16:01
PROVIDERS: ADMIT Surgery; ATTEND Surgery
PROC: 0SRC0J9 Replacement of Right Knee Joint with Synthetic Substitute, Cemented, Open Approach (ICD-10-PCS; principal; 2017-06-21 08:03)
DX: M17.11 Unilateral primary osteoarthritis, right knee (principal); G83.81 Brown-Sequard syndrome; I10 Essential (primary) hypertension; M54.9 Dorsalgia, unspecified; Z98.1 Arthrodesis status; E78.5 Hyperlipidemia, unspecified; H54.62 Unqualified visual loss, left eye, normal vision right eye
CPT/HCPCS: 73560; 85014; 85018; 86850; 86900; 86901; C1776; C9290; J0131; J0690; J1100; J2250; J2270; J2370; J2405; J2710; J3010; J3370; J7050; J7120; L1830